=== PATIENT | female | born 1980 | race Asian ===

== ENCOUNTER 2019-02-23 17:28 | Outpatient (CLI) | payer MEDICAID ==
[~2019-02-23] VITALS: Ht 152.4 cm; Wt 64.5 kg
[2019-02-23 17:35] VITALS: Ht 152.4 cm; Wt 64.5 kg
--- NOTE | 2019-02-23 20:30 | PN ---
Triage Information Date/Time February 23, 2019 Reason for visit: Elevated blood pressure in clinic Weeks of Gestation 39w 1d /Para 1/0 Diabetes: none Hypertention: none Additional information BP in clinic 133/90. Otherwise pot is completely asymptomatic i.e. no JAMESON, EGP, swelling, visual changes. PMHx: none. PSHx: Partial thyroidectomy. Objective BP's: 132/85, 129/80, 121/76, 119/76 Heart Rate: 140's Heart Rate Comments Accels to 170 BPM. No decels. Contractions: >10 Minutes Apart Results/Medications Result Diagram: 02/23/19 1745 02/23/19 1745 Results 24 hrs Laboratory Tests Test 02/23/19 17:30 02/23/19 17:45 Urine Color STRAW Urine Clarity CLEAR Urine pH 7.0 Urine Specific [place] 1.002 L Urine Ketones NEGATIVE Urine Nitrite NEGATIVE Urine Bilirubin NEGATIVE Urine Urobilinogen NEGATIVE Urine Leukocyte Esterase NEGATIVE Urine Hemoglobin NEGATIVE Urine Glucose NEGATIVE Urine Total Protein NEGATIVE White Blood Count 8.6 Red Blood Count 3.81 L Hemoglobin 11.9 L Hematocrit 35.4 L Mean Corpuscular Volume 92.9 Mean Corpuscular Hemoglobin 31.2 Mean Corpuscular Hemoglobin Concent 33.6 Red Cell Distribution Width 12.9 Platelet Count 236 Mean Platelet Volume 10.9 H Immature Granulocytes % 0.600 H Neutrophils % 68.5 Lymphocytes % 19.6 Monocytes % 9.7 Eosinophils % 1.4 Basophils % 0.2 Nucleated Red Blood Cells % 0.0 Immature Granulocytes # 0.050 H Neutrophils # 5.9 Lymphocytes # 1.7 Monocytes # 0.8 Eosinophils # 0.1 Basophils # 0.0 Nucleated Red Blood Cells # 0.0 Prothrombin Time 11.2 L Prothrombin Time Ratio 0.9 INR International Normalized Ratio 0.80 Activated Partial Thromboplast Time 31.5 Sodium Level 136 Potassium Level 4.2 Chloride Level 108 Carbon Dioxide Level 20 L Anion Gap 8 Blood Urea Nitrogen 10 Creatinine 0.83 Est Glomerular Filtrat Rate mL/min > 60 Glucose Level 87 Uric Acid 5.7 Calcium Level 9.2 Total Bilirubin 0.3 Direct Bilirubin 0.00 Indirect Bilirubin 0.3 Aspartate Amino Transf (AST/SGOT) 30 Alanine Aminotransferase (ALT/SGPT) 17 Alkaline Phosphatase 181 H Total Protein 7.7 Albumin 3.6 Globulin 4.10 H Albumin/Globulin Ratio 0.87 Imaging Results BPP 8/8 with an NOE of 13.2 VTX. Disposition: Discharge Assessment/Plan A: IUP at 39w 1d, Normotensive. P: D/C home. F/u at clinic 03/02 as normally scheduled. Labor precautions reviewed. PIH precautions reviewed. MACEY HAJI MD Feb 23, 2019 20:30
--- NOTE | 2019-02-23 23:16 | TRIAGE ---
OB Triage Datetime Report Generated by CPN: 02/23/2019 23:15 Datetime: 02/23/2019 20:20 Labor Evaluation Frequency: IRREGULAR Monitor Mode: External Duration (sec)2399: 50-70 Pattern: Normal: <= 5 Contractions in 10 Minutes Resting Tone [place]: Relaxed Heart Rate FHR Baseline Rate: 140 Monitor Mode: External US Variability: Moderate 6-25 bpm Accelerations: 15X15 Decelerations: None Category: Category I Datetime: 02/23/2019 19:00 Stage of : OB Triage Labor Evaluation Frequency: IRREGULAR Monitor Mode: External Duration (sec)2399: 60-120 Pattern: Normal: <= 5 Contractions in 10 Minutes Resting Tone [place]: Relaxed Heart Rate FHR Baseline Rate: 135 Monitor Mode: External US Variability: Moderate 6-25 bpm Accelerations: 15X15 Decelerations: None Category: Category I Datetime: 02/23/2019 17:55 EGA: 39.1 Datetime: 02/23/2019 17:26 Assessment Type: Triage Maternal Assessment Level of Consciousness: Keenly Alert, Responsive DTR's/Clonus: DTRs 2+; No Clonus Headache: Denies Blurred Vision: No Respiratory Effort: Unlabored; Regular Rhythm; Equal Expansion Breath Sounds, Left: Clear and Equal Breath Sounds, Right: Clear and Equal Nausea/Vomiting: Denies RUQ Epigastric Pain: Denies Lower Extremities Edema: None Degree: None Upper Extremities Edema: None Degree: None Facial Edema: None Fall Risk Assessment History of Falling: (0) No Secondary Diagnosis: (0) No Ambulatory Aid: (0) Bedrest/Nurse Assist IV Therapy: (0) No Gait: (0) Normal/Bedrest/Immobile Mental Status: (0) Oriented to Own Ability Fall Score: 0 Fall Risk Score Definition: No Risk: No action required Datetime: 02/23/2019 17:24 Time of Arrival: 02/23/2019 17:24 Arrived By: Ambulatory Chief Complaint: PT CAME IN FROM CLINIC DUE TO HIGH BLOOD PRESSURE AND R/O PIH. DENIES ANY S/S BUT STATES FEELING DIZZY TODAY Movement: Present Contractions: Denies/Absent Rupture of Membranes: Denies Vaginal Bleeding: None Vaginal Discharge: Denies Recent Sexual Intercouse: Denies Abdominal Trauma: Not Applicable Patient Complaints: Other Additional Patient Complaints: NONE Time Provider Notified: 02/23/2019 19:25 Provider Notified: DR. MARTINS Initial Plan: PIH PANEL AND BPP
== END 2019-02-23 20:24 | disposition home or self-care (01) ==
LOC: OBT 17:28 → L-D 17:29 → OBT 20:24
PROVIDERS: ATTEND Obstetrics & Gynecology
DX: O13.3 Gestational [pregnancy-induced] hypertension without significant proteinuria, third trimester (principal); Z3A.39 39 weeks gestation of pregnancy
CPT/HCPCS: 76818; 80053; 81003; 84560; 85025; 85610; 85730; Z7500; G0463

== ENCOUNTER 2019-03-02 00:05 | Inpatient (IN) | payer MEDICAID ==
[~2019-03-02] VITALS: Ht 152.4 cm; Wt 65.2 kg
[2019-03-02 00:47] VITALS: Ht 152.4 cm; Wt 65.2 kg
[2019-03-02 00:48] VITALS: BP 126/77; PULSE 86; RESP 16
[2019-03-02] MEDS ORDERED: LACTATED RINGER'S 1,000 ML IV PRN (03:16)
[2019-03-02] MEDS ORDERED: IBUPROFEN 600 MG TAB PO PRN (03:30)
[2019-03-02] MEDS ORDERED: MISOPROSTOL 200 MCG TAB PR PRN (03:30)
[2019-03-02] MEDS ORDERED: BUTORPHANOL 2 MG INJ IV PRN (03:30)
[2019-03-02] MEDS ORDERED: AMPICILLIN 2 GM/NS (PMX) 100 ML IV ONE (03:30)
[2019-03-02] MEDS ORDERED: CARBOPROST 250 MCG INJ IM PRN (03:30)
[2019-03-02] MEDS ORDERED: OXYTOCIN 30 UNITS/LR 500 ML IV SCH ×3 (03:30)
[2019-03-02] MEDS ORDERED: OXYTOCIN 30 UNITS/LR 500 ML IV PRN (03:30)
[2019-03-02] MEDS ORDERED: METHYLERGONOVINE 0.2 MG INJ IM PRN (03:30)
[2019-03-02] MEDS ORDERED: LIDOCAINE 1% (MPF) 30 ML INJ INJ PRN (03:30)
--- NOTE | 2019-03-02 04:11 | TRIAGE ---
OB Triage Datetime Report Generated by CPN: 03/02/2019 04:11 Datetime: 03/02/2019 02:38 Labor Evaluation Frequency: 3-5 Monitor Mode: External Duration (sec)2399: 70-90 Quality: Mild Pattern: Normal: <= 5 Contractions in 10 Minutes Resting Tone [place]: Relaxed Heart Rate FHR Baseline Rate: 125 Monitor Mode: External US FHR Baseline Changes: No Baseline Change Variability: Moderate 6-25 bpm Accelerations: 15X15 Decelerations: None Category: Category I Datetime: 03/02/2019 01:29 Labor Evaluation Frequency: 4-5 Monitor Mode: External Duration (sec)2399: 70-90 Quality: Mild Pattern: Normal: <= 5 Contractions in 10 Minutes Resting Tone [place]: Relaxed Heart Rate FHR Baseline Rate: 135 Monitor Mode: External US FHR Baseline Changes: No Baseline Change Variability: Moderate 6-25 bpm Accelerations: 15X15 Decelerations: None Category: Category I Datetime: 03/02/2019 01:07 Assessment Type: Triage Maternal Assessment Level of Consciousness: Keenly Alert, Responsive DTR's/Clonus: DTRs 2+; No Clonus Headache: Denies Blurred Vision: No Respiratory Effort: Unlabored; Regular Rhythm; Equal Expansion Breath Sounds, Left: Clear and Equal Breath Sounds, Right: Clear and Equal Nausea/Vomiting: Denies RUQ Epigastric Pain: Denies Facial Edema: None Fall Risk Assessment History of Falling: (0) No Secondary Diagnosis: (0) No Ambulatory Aid: (0) Bedrest/Nurse Assist IV Therapy: (0) No Gait: (0) Normal/Bedrest/Immobile Mental Status: (0) Oriented to Own Ability Fall Score: 0 Fall Risk Score Definition: No Risk: No action required Vaginal Exam Dilatation (cms): 0.0 Effacement (%): 0 Station: -3 Membrane Status: Intact Datetime: 03/02/2019 01:06 Time of Arrival: 03/02/2019 00:02 EGA: 39.5 Arrived By: Wheelchair Arrived From: Home Chief Complaint: UCS/SPOTTING Movement: Present Contractions: Irregular Contractions: Irregular Time Contractions Began: 03/01/2019 13:00 Time Contractions Began: 03/02/2019 08:00 Contractions: 10 MIN Rupture of Membranes: Denies Vaginal Bleeding: None Vaginal Discharge: Denies Recent Sexual Intercouse: Denies Abdominal Trauma: Not Applicable Patient Complaints: Contractions Time Provider Notified: 03/02/2019 02:37 Provider Notified: Initial Plan: NST, SVE Datetime: 03/02/2019 00:50 Labor Evaluation Frequency: 2-3 Monitor Mode: External Duration (sec)2399: 70-90 Quality: Mild Pattern: Normal: <= 5 Contractions in 10 Minutes Resting Tone [place]: Relaxed Heart Rate FHR Baseline Rate: 135 Monitor Mode: External US FHR Baseline Changes: No Baseline Change Variability: Moderate 6-25 bpm Accelerations: 15X15 Decelerations: None Category: Category I Datetime: 02/23/2019 17:55 EGA: 38.5 Datetime: 02/23/2019 17:26 Fall Score: 0 Fall Risk Score Definition: No Risk: No action required
[2019-03-02] MEDS: LACTATED RINGER'S 1,000 ML IV SCH ×4 (05:21→23:26)
[2019-03-02] MEDS: AMPICILLIN 1 GM/NS (PMX) 50 ML IV SCH ×5 (07:30→23:30)
[2019-03-02] MEDS: BUTORPHANOL 2 MG INJ IV PRN ×2 (09:47→12:45)
--- NOTE | 2019-03-02 09:57 | HP ---
Date/Time of Note Date/Time of Note DATE: 03/02/19 TIME: 09:53 OB - History Hx of Present Free Text/Dictation March 02, 2019 : 1 Para: 0 Other Concerns: 38-year-old G1, P0 with IUP at 39 weeks and 5 days presented with complaint of uterine contractions and some bleeding,/spotting. Patient denies any leaking of fluid or decreased movement. Patient was noted to have regular contractions consistent with likely early labor. She desires to proceed with labor augmentation/ induction. She denies any comp occasions during her antepartum course. Past Family/Social History * Past Medical, Surgical, Family and Obstetric Histories reviewed from chart. Blood Type: AB+ RPR/VDRL: Negative OB Admission Exam Vital Signs Vital Signs Vital Signs Date Temp Pulse Resp B/P (MAP) Pulse Ox O2 O2 Flow FiO2 Time Delivery Rate 03/02/19 98.0 86 16 126/77 Room Air 00:48 (93) Physical Exam HEENT: WNL Lungs: Clear Abdomen: WNL Extremities: Normal Cervical Dilatation: 1cm Effacement: 25% Station: -2 Membranes: Intact Heart Rate: 130's Accelerations: Accelerations Present Decelerations: No Decelerations Varibility: Moderate Contractions on Admission: < 5 Minutes Apart Intensity: Firm Last 72 hours Lab Results CBC & BMP 03/02/19 05:10 OB Assessment/Plan Other Assessment: IUP at 39 weeks and 5 days Early labor, regular contraction with bloody show GBS positive Patient desires to proceed with labor augmentation/induction Risk and benefit of induction discussed with patient. Desires to proceed Consider GBS prophylaxis. Patient was admitted to labor and delivery Labor management Epidural if she desired for pain control Anticipate CARLOS AUSTIN MD Mar 02, 2019 09:57
--- NOTE | 2019-03-02 14:12 | PREAC ---
Date/Time of Note Date/Time of Note DATE: 03/02/19 TIME: 14:12 Anesthesia Eval and Record Evaluation Time Pre-Procedure Interview DATE: 03/02/19 TIME: 14:12 Age 38 Sex female NPO: 8 hrs Preoperative diagnosis Planned procedure labor epidural Past Medical History Past Medical History: None Surgery & Anesthesia Issues No known issue Meds Anticoagulation: No Beta Ricardo within 24 hr: No Reason Beta Ricardo not given: Pt. not on B-Ricardo No Active Prescriptions or Reported Meds Current Medications Lactated Ringer's 1,000 ml @ 125 mls/hr Q8H IV Last administered on 03/02/19at 13:01; Admin Dose 125 MLS/HR; Start 03/02/19 at 03:16 Ampicillin 50 ml @ 100 mls/hr Q4H IV Last administered on 03/02/19at 10:12; Admin Dose 100 MLS/HR; Start 03/02/19 at 07:30 Butorphanol Tartrate (Stadol) 1 mg Q2H PRN IV .PAIN SCALE 1-5; Start 03/02/19 at 03:30 Butorphanol Tartrate (Stadol) 2 mg Q2H PRN IV .PAIN SCALE 6-10 Last administered on 03/02/19at 12:45; Admin Dose 2 MG; Start 03/02/19 at 03:30 Lidocaine (Xylocaine 1% (Mpf)) 30 ml ONCE PRN INJ .EPISIOTOMY; Start 03/02/19 at 03:30 Oxytocin/Lactated Ringer's 500 ml @ 500 mls/hr ONCE POST IV ; Start 03/02/19 at 03:30 Oxytocin/Lactated Ringer's 500 ml @ 125 mls/hr POST IV ; Start 03/02/19 at 03:30 Ibuprofen (Motrin) 600 mg ONCE PRN PO .PAIN 1-5; Start 03/02/19 at 03:30 Lactated Ringer's 1,000 ml @ 2,000 mls/hr Q30M PRN IV .ANESTHESIA; Start 03/02/19 at 03:16 Oxytocin/Lactated Ringer's 500 ml @ 0 mls/hr ONCE PRN IV .VAGINAL BLEEDING; Start 03/02/19 at 03:30 Methylergonovine Maleate (Methergine) 0.2 mg ONCE PRN IM .VAGINAL BLEEDING; Start 03/02/19 at 03:30 Carboprost Tromethamine (Hemabate) 250 mcg ONCE PRN IM .VAGINAL BLEEDING; Start 03/02/19 at 03:30 Misoprostol (Cytotec) 1,000 mcg ONCE PRN IA .VAGINAL BLEEDING; Start 03/02/19 at 03:30 Oxytocin/Lactated Ringer's 500 ml @ 0 mls/hr FOR INDUCTION IV Last administered on 03/02/19at 06:27; Admin Dose 1 MLS/HR; Start 03/02/19 at 03:30 Meds reviewed: Yes Allergies Coded Allergies: No Known Allergy (Unverified , 03/02/19) Allergies Reviewed: Yes Labs/Studies Labs Reviewed: Reviewed by anesthesiologist Result Diagram: 03/02/19 0510 Laboratory Tests 03/02/19 05:10 Blood Bank Test 03/02/19 05:10 Antibody Screen NEGATIVE Blood Type AB POSITIVE Rh Immune Globulin Candidate NO test: Positive Pre-procedure Exam Last vitals Vital Signs Date Temp Pulse Resp B/P (MAP) Pulse Ox O2 O2 Flow FiO2 Time Delivery Rate 03/02/19 98.0 86 16 126/77 Room Air 00:48 (93) Airway: Adequate mouth opening, Adequate thyromental dist Mallampati: Mallampati II Teeth: Normal Lung: Normal Heart: Normal ASA Physical Status ASA physical status: 1 Emergency: None Planned Anesthetic Neuraxial: Epidural Pre-operative Attestations Prior to commencing anesthesia and surgery, the patient was re-evaluated, there was verification of: *The patient's identity *The results of appropriate recent lab work and preoperative vital signs *The above evaluation not changing prior to induction *Anesthetic plan, risk benefits, alternative and complications discussed with patient/family; questions answered; patient/family understands, accepts and wishes to proceed. DESIRAE SAHNI Mar 02, 2019 14:12
[2019-03-02] MEDS ORDERED: FENTAnyl 2MCG/ML-ROPIV 0.2% 100 ML ONE (14:14)
[2019-03-02] MEDS ORDERED: HYDROmorphONE 0.5 MG/0.5 ML SYG IV PRN ×2 (14:30)
[2019-03-02] MEDS ORDERED: NALOXONE (0.4 MG/ML) INJ IV PRN (14:30)
[2019-03-02] MEDS ORDERED: ONDANSETRON 4 MG INJ IV PRN (14:30)
[2019-03-02] MEDS ORDERED: DIPHENHYDRAMINE 50 MG INJ IV PRN (14:30)
[2019-03-02] MEDS ORDERED: KETOROLAC 30 MG INJ IV PRN (14:30)
[2019-03-02] MEDS ORDERED: PREN-99 PO (22:03)
[2019-03-02] MEDS: FENTAnyl 2MCG/ML-ROPIV 0.2% 100 ML BAG EPI SCH ×2 (22:10→23:39)
[2019-03-03] MEDS ORDERED: MINERAL OIL LIGHT 10 ML VIAL TOP PRN
[2019-03-03] MEDS: AMPICILLIN 1 GM/NS (PMX) 50 ML IV SCH ×2 (03:58→07:48)
[2019-03-03] MEDS: FENTAnyl 2MCG/ML-ROPIV 0.2% 100 ML BAG EPI SCH (05:34)
[2019-03-03] MEDS: LACTATED RINGER'S 1,000 ML IV SCH (06:22)
[2019-03-03] MEDS ORDERED: ACETAMINOPHEN 500 MG TAB PO PRN (08:00)
[2019-03-03] MEDS ORDERED: OXYTOCIN 30 UNITS/LR 500 ML IV SCH (08:05)
--- NOTE | 2019-03-03 08:05 | LDN ---
Date/Time of Note Date/Time of Note DATE: 03/03/19 TIME: 08:04 Delivery Summary Weeks of Gestation 39 Placenta Delivered: Spontaneously Meconium: Particulate Episiotomy: No Perineal laceration: 1 Laceration repair: 1st degree perineal laceation repair with 2-0 and 3-0 chromic Anesthesia type: Epidural Estimated blood loss: 250 Sponge & Needle done & correct: Yes All needle counts correct: Yes Any foreign bodies felt in the: No Delivery Information Sex Sex: female Apgars 1 Minute: 9 5 Minute: 9 Suctioning Nose & mouth suctioned at thomas: No Delee suction performed: No Umbilical Cord Umbilical cord with: 3 Vessels Cord presentations: no nuchal cord Cord Blood was obtained: Yes SCOTTY MARTINS MD Mar 03, 2019 08:05
[2019-03-03] MEDS ORDERED: LANOLIN HPA 1 PKT TOP PRN (08:30)
[2019-03-03] MEDS ORDERED: BENZOCAINE 20% 56 ML SPRAY TOP PRN (08:30)
[2019-03-03] MEDS ORDERED: ONDANSETRON 4 MG INJ IV PRN (08:30)
[2019-03-03] MEDS ORDERED: OXYCODONE/ASPIRIN (4.88/325) TAB PO PRN (08:30)
[2019-03-03] MEDS ORDERED: OXYTOCIN 30 UNITS/LR 500 ML IV PRN (08:30)
[2019-03-03] MEDS ORDERED: METHYLERGONOVINE 0.2 MG INJ IM PRN (08:30)
[2019-03-03] MEDS ORDERED: MISOPROSTOL 200 MCG TAB PR PRN (08:30)
[2019-03-03] MEDS ORDERED: WITCH HAZEL/GLYCERIN PAD PR PRN (08:30)
[2019-03-03] MEDS ORDERED: NACL 0.9% 3 ML SYG IV SCH (08:30)
[2019-03-03] MEDS ORDERED: CARBOPROST 250 MCG INJ IM PRN (08:30)
[2019-03-03 10:15] VITALS: BP 124/77; PULSE 100; RESP 18
[2019-03-03] MEDS: IBUPROFEN 800 MG TAB PO SCH ×3 (12:21→23:48)
[2019-03-03 15:53] VITALS: BP 130/80; PULSE 98; RESP 18
[2019-03-03 20:00] VITALS: BP 116/74; PULSE 90; RESP 19
[2019-03-04 03:40] VITALS: BP 104/70; PULSE 83; RESP 20
[2019-03-04] MEDS: IBUPROFEN 800 MG TAB PO SCH ×3 (05:32→17:36)
[2019-03-04 08:15] VITALS: BP 129/65; PULSE 80; RESP 18
--- NOTE | 2019-03-04 11:45 | PAC ---
Date/Time of Note Date/Time of Note DATE: 03/04/19 TIME: 11:45 Post-Anesthesia Notes Post-Anesthesia Note Last documented vital signs Vital Signs Date Temp Pulse Resp B/P (MAP) Pulse Ox O2 O2 Flow FiO2 Time Delivery Rate 03/04/19 98.5 80 18 129/65 Room Air 08:15 (86) Activity: WNL Respiratory function: WNL Cardiovascular function: WNL Mental status: Baseline Pain reasonably controlled: Yes Hydration appropriate: Yes Nausea/Vomiting absent: Yes DESIRAE SAHNI Mar 04, 2019 11:45
--- NOTE | 2019-03-04 14:36 | QN ---
Documentation Comment day #1 Status post Patient stable and afebrile Vital signs stable VS - Last 72 Hours, by Label Date Temp Pulse Resp B/P (MAP) Pulse Ox O2 O2 Flow FiO2 Time Delivery Rate 03/04/19 98.5 80 18 129/65 Room Air 08:15 (86) 03/04/19 97.8 83 20 104/70 Room Air 03:40 (81) 03/03/19 97.8 90 19 116/74 Room Air 20:00 (88) 03/03/19 98.3 98 18 130/80 Room Air 15:53 (97) 03/03/19 98.0 100 18 124/77 Room Air 10:15 (93) 03/02/19 98.0 86 16 126/77 Room Air 00:48 (93) Hematology - 72 Hrs Test 03/02/19 05:10 03/04/19 04:22 Hematocrit 36.0 % (37.0-47.0) L 24.8 % (37.0-47.0) #L Hemoglobin 12.0 g/dl (12.0-16.0) 8.2 g/dl (12.0-16.0) #L Mean Corpuscular 32.0 pg (29.0-33.0) 32.2 pg (29.0-33.0) Hemoglobin Mean Corpuscular 33.3 g/dl (32.0-37.0) 33.1 g/dl (32.0-37.0) Hemoglobin Concent Mean Corpuscular Volume 96.0 fl (82.0-101.0) 97.3 fl (82.0-101.0) Mean Platelet Volume 11.7 fl (7.4-10.4) H 11.3 fl (7.4-10.4) H Platelet Count 211 10^3/UL (140-415) 137 10^3/UL (140-415) #L Red Blood Count 3.75 10^6/ul (4.20-5.40) 2.55 10^6/ul (4.20-5.40) L #L Red Cell Distribution 13.2 % (11.5-14.5) 13.4 % (11.5-14.5) Width White Blood Count 9.5 10^3/ul (4.8-10.8) 18.9 10^3/ul (4.8-10.8) #H Abdomen soft, fundus firm Perineum intact Extremities nontender Assessment and plan Patient stable and afebrile and doing well Repeat CBC in a.m. Continue with routine care RACHEL MA MD Mar 04, 2019 14:36
[2019-03-04] MEDS ORDERED: BISACODYL 10 MG SUPP PR ONE (15:00)
[2019-03-04 15:52] VITALS: BP 112/63; PULSE 84; RESP 18
[2019-03-04 20:00] VITALS: BP 131/73; PULSE 88; RESP 18
[2019-03-04] MEDS: DOCUSATE SODIUM 100 MG CAP PO SCH (21:28)
[2019-03-05] MEDS: IBUPROFEN 800 MG TAB PO SCH ×3 (00:38→12:10)
[2019-03-05 04:20] VITALS: BP 112/82; PULSE 80; RESP 19
[2019-03-05] MEDS: DOCUSATE SODIUM 100 MG CAP PO SCH (08:39)
--- NOTE | 2019-03-05 10:03 | PD.PPDC ---
SUPERVISOR SCREEN MAKING Discharge Instruction Condition [id number] Patient Condition: [id number] Fair Diet [id number] Diet: [id number] Resume Regular Diet Activity/Restrictions [id number] Activity: [id number] Normal Activity May Shower Follow-up Follow-up with Physician: 3, Week/Weeks Return to clinic for [id number] ANIMAL ECOLOGIST Instructions: [id number] Fever greater than 101 Chills Worsening abdominal pain Excessive Vaginal Bleeding More than 2 pads per hour Unable to tolerate diet [id number] OB Instructions: [id number] Breast Tenderness Depression Blurried Vision Headache [id number] Surgical Instructions: [id number] Incisional Drainage Incisional Redness SCOTTY MARTINS MD Mar 05, 2019 10:03
--- NOTE | 2019-03-09 08:27 | DS ---
Date/Time of Note Date/Time of Note DATE: 03/09/19 TIME: 08:26 Obstetrical Discharge Record Final Diagnosis Final Diagnosis: Term delivered Vaginal Delivery Obstetrical Delivery: Spontaneous, Laceration, Repaired Condition on Discharge Physical Assessment Last Vitals: stable afebrile Voiding: Yes Bowel Movement: Yes Breast: Soft, non-tender, Filling Fundus: Firm Abdomen and Incision: soft nt Calf Tenderness: No Patient Condition: Fair SCOTTY MARTINS MD Mar 09, 2019 08:27
== END 2019-03-05 13:45 | disposition home or self-care (01) | DRG 807 ==
LOC: L-D 00:05 → OBT 00:05 → L-D 00:32 → OBT 02:30 → L-D 04:45 → MS1 03-03 10:15
PROVIDERS: ADMIT Obstetrics & Gynecology; ATTEND Obstetrics & Gynecology
PROC: 3E033VJ Introduction of Other Hormone into Peripheral Vein, Percutaneous Approach (ICD-10-PCS; 2019-03-02)
PROC: 10E0XZZ Delivery of Products of Conception, External Approach (ICD-10-PCS; principal; 2019-03-03)
PROC: 0HQ9XZZ Repair Perineum Skin, External Approach (ICD-10-PCS; 2019-03-03)
DX: O70.0 First degree perineal laceration during delivery (principal); O99.824 Streptococcus B carrier state complicating childbirth; Z37.0 Single live birth; Z3A.38 38 weeks gestation of pregnancy
CPT/HCPCS: 62322; 76815; 76818; 85025; 85610; 85730; 86592; 86850; 86900; 86901; 87340; G0463; J0290; J0595; J2590; J3010; J7120